=== PATIENT | male | born 1965 | race Caucasian/White ===

== ENCOUNTER 2020-09-19 14:58 | Emergency (ER) | payer OTHER ==
[2020-09-19] MEDS ORDERED: AUGMENTIN 875-1 EACH PO (18:27)
== END 2020-09-19 19:00 | disposition home or self-care (01) ==
LOC: ER1 14:58
DX: S61.452A Open bite of left hand, initial encounter (principal); Z23 Encounter for immunization; W54.0XXA Bitten by dog, initial encounter; Y92.009 Unspecified place in unspecified non-institutional (private) residence as the place of occurrence of the external cause
CPT/HCPCS: 90471; 90715; 99283

== ENCOUNTER 2021-06-18 14:48 | Inpatient (IN) | payer OTHER ==
[~2021-06-18] VITALS: Ht 177.8 cm; Wt 90.3 kg
[~2021-06-18 14:48] MED LIST: AUGMENTIN 875-1 EACH PO
[2021-06-18 15:12] LABS: HEMOGLOBIN 13.3 gm/dl (14.0-17.5); RED BLOOD COUNT 4.16 M/UL (4.20-5.50); WHITE BLOOD COUNT 8.6 K/UL (4.5-11.0)
[2021-06-18] MEDS ORDERED: IBU-200200 MG PO (16:55)
[2021-06-18] MEDS ORDERED: OMEPRAZOLE20 MG PO (16:55)
[2021-06-18 17:03] LABS: BUN/CREATININE RATIO 15 (0-10)
[2021-06-19 04:55] LABS: HEMOGLOBIN 12.5 gm/dl (14.0-17.5); RED BLOOD COUNT 3.94 M/UL (4.20-5.50)
[2021-06-19 05:07] LABS: WHITE BLOOD COUNT 6.2 K/UL (4.5-11.0)
[2021-06-19 05:21] LABS: BUN/CREATININE RATIO 16 (0-10)
[2021-06-19] MEDS ORDERED: HYDROCODON-ACE1 EAC4 PO (20:08)
[2021-06-19] MEDS ORDERED: LEVOFLOXACIN500 MG PO (20:08)
[2021-06-20 04:51] LABS: HEMOGLOBIN 12.7 gm/dl (14.0-17.5); RED BLOOD COUNT 3.97 M/UL (4.20-5.50); WHITE BLOOD COUNT 6.7 K/UL (4.5-11.0)
[2021-06-20 05:13] LABS: BUN/CREATININE RATIO 16 (0-10)
[2021-06-20] MEDS ORDERED: BENZONATATE100 MG PO (13:35)
== END 2021-06-20 15:04 | disposition home or self-care (01) | DRG 242 ==
LOC: ER1 14:48 → CDU 15:55 → CCU 19:46 → MED SURG 4 06-20 13:11
PROVIDERS: Emergency Medicine; Physician Assistant Medical; ADMIT Internal Medicine
PROC: B24BZZZ Ultrasonography of Heart with Aorta (ICD-10-PCS; principal; 2021-06-18)
PROC: 8E0ZXY6 Isolation (ICD-10-PCS; 2021-06-18)
PROC: 0JH606Z Insertion of Pacemaker, Dual Chamber into Chest Subcutaneous Tissue and Fascia, Open Approach (ICD-10-PCS; 2021-06-20)
PROC: 02H63JZ Insertion of Pacemaker Lead into Right Atrium, Percutaneous Approach (ICD-10-PCS; 2021-06-20)
PROC: 02HK3JZ Insertion of Pacemaker Lead into Right Ventricle, Percutaneous Approach (ICD-10-PCS; 2021-06-20)
DX: I44.2 Atrioventricular block, complete (principal); U07.1 COVID-19; R00.1 Bradycardia, unspecified; F17.220 Nicotine dependence, chewing tobacco, uncomplicated; Z85.828 Personal history of other malignant neoplasm of skin; Z82.49 Family history of ischemic heart disease and other diseases of the circulatory system
CPT/HCPCS: ECHO; 33208; 36415; 71045; 71250; 80048; 80053; 80307; 82550; 82553; 83735; 83874; 83880; 84439; 84443; 84484; 85025; 85027; 93005; 93306; 99152; 99153; 99285; C1785; C1898; J1644; J2250; J3010; J3370; J7040; J7050; J7070; U0002

== ENCOUNTER → 2022-04-02 | Outpatient (CLI) | payer OTHER ==
[~2022-04-02] MED LIST changes: +AMITRIPTYLINE H25 MG PO; +ASPIRIN EC81 MG PO; +BENZONATATE100 MG PO; +CARVEDILOL3.125 MG PO; +ELIQUIS 5 MG TAB5 MG PO; +ENTRESTO 24 MG1 EACH PO; +FLUOXETINE HCL40 MG PO; +HYDROCODON-ACE1 EAC4 PO; +IBU-200200 MG PO; +IBU800 MG PO; +LASIX TAB 20 MG20 MG PO; +LEVOFLOXACIN500 MG PO; +LIPITOR40 MG PO; +NITROSTAT0.4 MG SL; +OMEPRAZOLE20 MG PO; +OMEPRAZOLE40 MG PO; +ZESTRIL10 MG PO
== END ==
LOC: KOH-I 08:58
DX: R91.1 Solitary pulmonary nodule (principal)
CPT/HCPCS: 71250